=== PATIENT | male | born 1935 | race Caucasian/White ===

== ENCOUNTER 2018-07-11 10:03 | Emergency (ER) | payer MEDICARE, BC ==
[2018-07-11] MEDS ORDERED: Bacitracin Zinc 1 Packet ONE (10:51)
== END 2018-07-11 10:57 | disposition home or self-care (01) ==
LOC: SCSER 10:03
DX: S00.01XA Abrasion of scalp, initial encounter (principal); S50.311A Abrasion of right elbow, initial encounter; S80.211A Abrasion, right knee, initial encounter; E78.5 Hyperlipidemia, unspecified; I10 Essential (primary) hypertension; Z79.82 Long term (current) use of aspirin; Z79.899 Other long term (current) drug therapy; W01.0XXA Fall on same level from slipping, tripping and stumbling without subsequent striking against object, initial encounter
CPT/HCPCS: 99283

== ENCOUNTER 2024-03-24 15:16 | Outpatient (CLI) | payer MEDICARE ==
[2024-03-24 16:15] LABS: #Basophils 0.09 10x3/uL (0.0-0.2); %Basophils 0.9 % (0.0-1.0); %Eosinophils 2.7 % (0.0-10.0); %Lymphocytes 23.5 % (21.0-51.0); %Monocytes 13.8 % (0.0-10.0); %Neutrophils 58.7 % (42.0-75.0); Hematocrit 38.5 % (42.0-52.0); Hemoglobin 12.9 g/dL (14.0-18.0); Mean Corpuscular HGB CONC 33.5 g/dL (32.0-36.0); Mean Corpuscular Hemoglobin 29.5 pg (27.0-31.0); Mean Corpuscular Volume 88.1 fL (78.0-98.0); Mean Platelet Volume 8.9 fL (7.4-10.4); Platelet Count 305 10x3/uL (130-400); RBC Distribution Width 13.9 % (11.5-14.5); Red Blood Cell (RBC) Count 4.37 mill/uL (4.70-6.10)
[2024-03-24 16:34] LABS: Calc. Creatinine Clearance 0 mL/min (70-130); Estimated GFR 42
[2024-03-24 16:35] LABS: Anion Gap 15 mmol/L (10-20); BUN (Urea Nitrogen) 40 mg/dL (8.4-25.7); Calcium 9.4 mg/dL (7.8-10.44); Carbon Dioxide 23 mmol/L (23-31); Chloride 102 mmol/L (98-107); Glucose 107 mg/dL (83-110); Potassium 3.7 mmol/L (3.5-5.1); Sodium 136 mmol/L (136-145)
== END 2024-03-24 15:17 | disposition home or self-care (01) ==
LOC: LABBT 15:16
PROVIDERS: ATTEND Urology
DX: Z01.812 Encounter for preprocedural laboratory examination (principal); N20.1 Calculus of ureter
CPT/HCPCS: 80048; 85025

== ENCOUNTER 2024-03-29 08:27 | Day surgery (SDC) | payer MEDICARE ==
[2024-03-26 09:32] VITALS: BMI 22.9
[2024-03-29] MEDS ORDERED: cefTRIAXone (ROCEPHIN) 2 GM VIAL ONE (10:32)
[2024-03-29] MEDS ORDERED: Sodium Chloride 0.9% 100 ML ONE (10:32)
[2024-03-29] MEDS ORDERED: PROPOFOL 40 ML ONE (11:15)
[2024-03-29] MEDS ORDERED: Dexamethasone 4 mg/ml Vial ONE (11:15)
[2024-03-29] MEDS ORDERED: Lidocaine 1% PF 5 ML VIAL ONE (11:15)
[2024-03-29] MEDS ORDERED: Ondansetron PF 4 MG/2 ML Vial ONE (11:15)
[2024-03-29] MEDS ORDERED: fentaNYL PF 100 MCG/2 ML SYRINGE ONE (11:15)
[2024-03-29] MEDS ORDERED: Iopamidol 15 ML ONE (11:58)
[2024-03-29] MEDS ORDERED: ePHEDrine Sulfate 50 MG/10 ML VIAL ONE (12:01)
[2024-03-29] MEDS ORDERED: PHENYLEPHRINE-NS 100 MCG/ML 10 ML SYRINGE ONE (12:25)
[2024-03-29] MEDS ORDERED: hydrALAZINE 20 MG/ML VIAL ONE (14:02)
[2024-04-02 13:37] LABS: CA Oxalate Dihydrate 10 % (.); CA Oxalate Monohydrate 85 % (.); Color Brown (.); Stone Weight 49 mg (.)
== END 2024-03-29 15:29 | disposition home or self-care (01) ==
LOC: SDC 08:27
PROVIDERS: ATTEND Urology
PROC: 0TC78ZZ Extirpation of Matter from Left Ureter, Via Natural or Artificial Opening Endoscopic (ICD-10-PCS; principal; 2024-03-29)
PROC: 0T778DZ Dilation of Left Ureter with Intraluminal Device, Via Natural or Artificial Opening Endoscopic (ICD-10-PCS; 2024-03-29)
DX: N20.1 Calculus of ureter (principal); N40.0 Benign prostatic hyperplasia without lower urinary tract symptoms; I10 Essential (primary) hypertension; E78.5 Hyperlipidemia, unspecified; E78.00 Pure hypercholesterolemia, unspecified; F03.90 Unspecified dementia, unspecified severity, without behavioral disturbance, psychotic disturbance, mood disturbance, and anxiety; Z85.46 Personal history of malignant neoplasm of prostate; Z87.891 Personal history of nicotine dependence; Z90.79 Acquired absence of other genital organ(s); Z88.8 Allergy status to other drugs, medicaments and biological substances; Z79.84 Long term (current) use of oral hypoglycemic drugs; Z79.899 Other long term (current) drug therapy
CPT/HCPCS: 52356; 74420; 82365; A4333; C1747; C1769; C2617; J0360; J0696; J1100; J2405; J2704; Q9967; 88300